=== PATIENT | female | born 1960 | race Caucasian/White ===

== ENCOUNTER 2020-12-17 13:28 | Observation (INO) | payer BC ==
[~2020-12-17] VITALS: Ht 157.5 cm; Wt 40.8 kg
[2020-12-17 13:42] VITALS: BP 153/109
[2020-12-17] MEDS ORDERED: NORCO5 PO (13:46)
[2020-12-17] MEDS ORDERED: PROTONIX 20 MG20 MG PO (13:46)
[2020-12-17] MEDS ORDERED: LISINOPRIL10 MG PO (13:46)
[2020-12-17] MEDS ORDERED: NORVASC10 MG PO (13:46)
[2020-12-17 14:48] LABS: HEMATOCRIT 41.9 % (37.0-47.0); HEMOGLOBIN 14.1 gm/dL (12.0-15.0); MCH 33.6 pg (26.0-34.0); MCHC 33.7 g/dL (28.0-37.0); MCV 99.6 fL (80.0-100.0); MPV 6.9 fl. (7.2-11.1); NUCLEATED RBCS 0 /100WBC; PLATELET COUNT* 415 thou/uL (150-400); RBC 4.21 mil/uL (4.20-5.00); RDW-CV 12.9 % (10.5-14.5); WBC 13.6 thou/uL (4.0-11.0)
[2020-12-17 15:00] LABS: CALCIUM 10.3 mg/dL (8.5-10.1); CREATININE 1.1 mg/dL (0.6-1.3)
[2020-12-17 15:04] LABS: ALBUMIN 4.8 g/dL (3.4-5.0); POTASSIUM 2.6 mmol/L (3.5-5.1); TOTAL BILIRUBIN 0.5 mg/dL (<0.1-1.0); TOTAL PROTEIN 8.5 g/dL (6.4-8.2)
[2020-12-17 15:35] LABS: URINE BILIRUBIN NEGATIVE (Negative); URINE BLOOD TRACE (Negative); URINE CLARITY CLEAR; URINE COLOR YELLOW; URINE GLUCOSE-RANDOM TRACE (Negative); URINE KETONES NEGATIVE (Negative); URINE LEUKOCYTES-REFLEX 1+ (Negative); URINE NITRITE-REFLEX NEGATIVE (Negative); URINE PROTEIN 1+ (Negative); URINE SPECIFIC GRAVITY 1.015 (1.005-1.030); URINE UROBILINOGEN 0.2 E.U./dl (0.2-1.0)
[2020-12-17 15:37] LABS: ABSOLUTE LYMPHOCYTES 1.2 thou/uL (0.8-5.3); ABSOLUTE MONOCYTES 0.3 thou/uL (0.0-1.2); ABSOLUTE NEUTROPHILS 12.1 thou/uL (1.6-8.1)
[2020-12-17 15:38] LABS: PLATELET ESTIMATE ADEQUATE
[2020-12-17 15:43] LABS: AMP/METHAMP Negative (Negative); BARBITURATES Negative (Negative); BENZODIAZEPINES Negative (Negative); COCAINE Negative (Negative); METHADONE Negative (Negative); OPIATES POSITIVE (Negative); PCP Negative (Negative); THC POSITIVE (Negative)
[2020-12-17 15:57] LABS: HYALINE CASTS 0-3 Few /LPF (None Seen); MUCUS None Seen strn/LPF (None Seen); SQUAMOUS >10 Many /LPF (0-3); URINE WBC-REFLEX 6-15 Few /HPF (0-5)
[2020-12-17 15:58] LABS: BACTERIA-REFLEX 1-9 Few /HPF (None Seen); CRYSTALS None Seen /LPF (None Seen); URINE RBC None Seen /HPF (0-2)
[2020-12-17 19:03] LABS: CALCIUM 8.7 mg/dL (8.5-10.1); CREATININE 0.9 mg/dL (0.6-1.3); POTASSIUM 3.3 mmol/L (3.5-5.1)
--- NOTE | 2020-12-17 19:45 | NUR ---
PT'S SPOUSE CAME T [facility]S STATION DEMANDING TREATMENT FOR HIS 'S ELEVATED BP. ORDERS RECEIVED ONCE FINDINGS REPORTED TO PROVIDER. SEE EMAR FOR ADMINISTRATION.
--- NOTE | 2020-12-17 21:09 | NUR ---
PT'S SPOUSE CAME TO NURSE'S STATION DEMANDING THAT HIS 'S LOW BLOOD PRESSURE BE ADDRESSED. PT NOTED TO BE 79/47. PROVIDER AWARE, NO ORDERS RECEIEVED. RECHECK SHOWS PRESSURE OF 109/60. WILL CONTINUE TO MONITOR. PT'S SPOUSE VERY IRRITABLE WHEN DISCUSSING HIS 'S CARE WITH ALL STAFF.
[2020-12-17 22:02] VITALS: BP 109/60
[2020-12-17 23:00] VITALS: BP 124/85
[2020-12-18] VITALS: BP 136/91
[2020-12-18 04:00] VITALS: BP 101/63
--- NOTE | 2020-12-18 06:17 | NUR ---
PT CAME TO FLOOR APPROX 0000 FROM ED. SHE REPORTS A DAY OR TWO OF ABD PAIN THAT IS IN RUQ AND STABBING AND SHARP. SHE RATES IT 8/10 AND IS REQUESTING MORPHINE. THE DR PROCESS CONTROL SUPERVISOR WAS CONTACTED AND PT WAS PRESCRIBED NORCO FOR PAIN. PT HAD TROUBLE WITH HTN IN ED AND WAS 124/85 ON ADMIT. SHE REPORTS NO CHEST PAIN, HEADACHE OR SOA. PT IS ON ROOM AIR SATTING APPROPRIATELY. SHE DOES NOT HAVE A COUGH. PT IS GETTING NS @ 100mL/HR PER ORDER. HOME MEDS WERE STARTED AND PT BP REMAINED WNL THIS PM SHIFT. PT DID NOT SLEEP MUCH AND REQUESTED MEDS FOR SLEEP. CALL LIGHT IN REACH FOR PT SAFETY
[2020-12-18 08:00] VITALS: BP 123/76
[2020-12-18] MEDS ORDERED: LISINOPRIL10 MG PO (11:46)
[2020-12-18] MEDS ORDERED: AUGMENTIN 875-1 EACH PO (11:46)
[2020-12-18] MEDS ORDERED: NORCO5 PO (11:46)
--- NOTE | 2020-12-18 11:47 | NUR ---
Nutrition: Pt admitted with pancreatitis. Consult received for low wt. Wt: 89#. Pt is tolerating regular diet. +BM. BG 131, alb 4.8, WBC 13.6, K+ 3.3. Spoke with JANINE Deluna, and pt is discharging today. If pt ends up not discharging for some reason, will order Ensure supplement for added kcal intake. Underweight R/T etiology unknown AEB BMI <18.5 despite good po intake. Mild risk at this time.
[2020-12-18 13:02] VITALS: BP 123/76
--- NOTE | 2020-12-18 14:17 | NUR ---
Patient discharge instructions and discharged medications completed .Iv access removed and patient sustained a skin tear which was covered by bandaid . no other issue noted . will continue to observe
== END 2020-12-18 13:45 | disposition home or self-care (01) ==
LOC: M.ERS 13:28 → M.ORTHSURG 17:07 → M.TBA-ER 17:07 → M.ORTHSURG 22:22
PROVIDERS: Physician Assistant; ADMIT Internal Medicine; ATTEND Internal Medicine
DX: A04.9 Bacterial intestinal infection, unspecified (principal); E87.6 Hypokalemia; R11.2 Nausea with vomiting, unspecified; E87.1 Hypo-osmolality and hyponatremia; Z20.822 Contact with and (suspected) exposure to COVID-19; R10.11 Right upper quadrant pain; K86.1 Other chronic pancreatitis; E83.42 Hypomagnesemia; I10 Essential (primary) hypertension; Z79.899 Other long term (current) drug therapy; D72.829 Elevated white blood cell count, unspecified; Z90.49 Acquired absence of other specified parts of digestive tract